=== PATIENT | female | born 1955 | race Caucasian/White ===

== ENCOUNTER 2018-01-01 10:54 | Emergency (ER) | payer OTHER ==
[~2018-01-01] VITALS: Ht 167.6 cm; Wt 99.8 kg
--- NOTE | ~2018-01-01 | EKG ---
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
[2018-01-01 11:44] LABS: ABSOLUTE NEUTROPHILS 3.5 thou/uL (1.4-8.2); BASOPHILS 1.3 % (0.0-2.0); EOSINOPHILS 1.7 % (0.0-3.0); HEMATOCRIT 40.9 % (37.0-47.0); HEMOGLOBIN 13.9 gm/dL (12.0-15.0); LYMPHOCYTES 34.7 % (24.0-44.0); MCH 29.3 pg (26.0-34.0); MCHC 34.1 g/dL (28.0-37.0); MCV 86.1 fL (80.0-100.0); MONOCYTES 9.3 % (1.0-8.0); PLATELET COUNT 353 thou/uL (150-400); RBC 4.76 mil/uL (4.20-5.00); RDW 14.7 % (10.5-14.5); WBC 6.6 thou/uL (4.0-11.0)
[2018-01-01] MEDS ORDERED: SYNTHROID50 MCG PO (11:46)
[2018-01-01] MEDS ORDERED: CYMBALTA60 MG PO (11:47)
[2018-01-01] MEDS ORDERED: ESTRADIOL 1 MG T1 M1 PO (11:47)
[2018-01-01] MEDS ORDERED: PROGESTERONE100 MG PO (11:48)
[2018-01-01 11:54] LABS: ANION GAP 8 mmol/L (7-16); BUN 16 mg/dL (7-18); CALCIUM 9.4 mg/dL (8.5-10.1); CHLORIDE 104 mmol/L (98-107); CO2 26 mmol/L (21-32); CREATININE 1.1 mg/dL (0.6-1.0); GLUCOSE 97 mg/dL (74-106); SODIUM 138 mmol/L (136-145)
[2018-01-01 12:03] LABS: ALBUMIN 3.8 g/dL (3.4-5.0); LIPASE 184 U/L (73-393); SGOT 27 U/L (15-37); SGPT 24 U/L (30-65); TOTAL BILIRUBIN 0.3 mg/dL (<0.1-1.0); TOTAL PROTEIN 8.4 g/dL (6.4-8.2); TROPONIN-I < 0.04 ng/mL (<0.06)
[2018-01-01 12:42] VITALS: BP 131/75
== END 2018-01-01 12:44 | disposition home or self-care (01) ==
LOC: ER 10:54
PROVIDERS: Physician Assistant
DX: R07.9 Chest pain, unspecified (principal); Z88.0 Allergy status to penicillin; Z88.2 Allergy status to sulfonamides

== ENCOUNTER 2021-11-05 11:43 | Emergency (ER) | payer OTHER, MEDICARE, BC ==
[~2021-11-05] VITALS: Ht 165.1 cm; Wt 93.0 kg
[~2021-11-05 11:43] MED LIST: CYMBALTA60 MG PO; ESTRADIOL 1 MG T1 M1 PO; PROGESTERONE100 MG PO; SYNTHROID50 MCG PO
[2021-11-05] MEDS ORDERED: PLAQUENIL200 MG PO (11:51)
[2021-11-05] MEDS ORDERED: ULTRAM 50MG TAB50 MG PO (11:51)
[2021-11-05] MEDS ORDERED: IBUPROFEN 800800 MG PO ×2 (13:43→13:45)
[2021-11-05 13:56] VITALS: BP 118/60
== END 2021-11-05 13:56 | disposition home or self-care (01) ==
LOC: ER 11:43
DX: M25.552 Pain in left hip (principal); Z98.890 Other specified postprocedural states; Z79.899 Other long term (current) drug therapy; Z88.0 Allergy status to penicillin; Z88.2 Allergy status to sulfonamides; W01.0XXA Fall on same level from slipping, tripping and stumbling without subsequent striking against object, initial encounter; Y93.89 Activity, other specified; Y92.89 Other specified places as the place of occurrence of the external cause; Y99.8 Other external cause status